=== PATIENT | male | born 1995 | race Caucasian/White ===

== ENCOUNTER 2018-06-29 16:59 | Emergency (ER) | payer OTHER, MEDICAID ==
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
[2018-06-29] MEDS ORDERED: IOPAMIDOL (ISOVUE 370) 100 ML BTL IV ONE (17:13)
[2018-06-29] MEDS ORDERED: ONDANSETRON 4 MG/2 ML VIAL IVP ONE (17:33)
[2018-06-29] MEDS ORDERED: fentaNYL 100 MCG/2 ML INJ IVP ONE (17:33)
[2018-06-29] MEDS ORDERED: NS 1,000 ML IV ONE (19:35)
[2018-06-29 21:33] VITALS: BP 129/90
== END 2018-06-29 21:35 | disposition home or self-care (01) ==
PROC: 0HQ1XZZ Repair Face Skin, External Approach (ICD-10-PCS; principal; 2018-06-29)
DX: S42.032A Displaced fracture of lateral end of left clavicle, initial encounter for closed fracture (principal); S01.01XA Laceration without foreign body of scalp, initial encounter; S22.32XA Fracture of one rib, left side, initial encounter for closed fracture; E86.9 Volume depletion, unspecified; V86.59XA Driver of other special all-terrain or other off-road motor vehicle injured in nontraffic accident, initial encounter; Y92.410 Unspecified street and highway as the place of occurrence of the external cause
CPT/HCPCS: 82435-PO; 82565-PO; 82947-PO; 84132-PO; 84295-PO; 84520-PO; 85014-ER; 96374; A4565; J2405; J3010; Q9967

== ENCOUNTER 2018-07-12 11:47 | Day surgery (SDC) | payer MEDICAID, OTHER ==
[2018-07-12] MEDS ORDERED: ceFAZolin 2 GM/DEXTROSE 100 ML IV ONE (12:03)
[2018-07-12] MEDS ORDERED: LR 1,000 ML IV ONE (12:04)
[2018-07-12] MEDS ORDERED: BUPIVACAINE/EPI 0.5% 30 ML SDV ONE (12:46)
--- NOTE | 2018-07-12 13:29 | PDHPUP ---
History & Physical Update H&P update statement: This history and physical update is based on an assessment of the patient which was completed after admission or registration (within 24 hours), but prior to the surgery/procedure. H&P update: H&P reviewed & patient examined, no change in patient's condition since H&P completed
[2018-07-12] MEDS ORDERED: MIDAZOLAM 2 MG/2 ML VIAL IVP ONE (13:33)
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
[2018-07-12] MEDS ORDERED: ROCURONIUM 100 MG/10 ML VIAL ONE (13:40)
[2018-07-12] MEDS ORDERED: fentaNYL 100 MCG/2 ML INJ ONE ×3 (13:40→16:14)
[2018-07-12] MEDS ORDERED: PROPOFOL 200 MG/20 ML VIAL ONE (13:40)
[2018-07-12] MEDS ORDERED: LIDOCAINE 2% 5 ML SDV ONE (13:41)
[2018-07-12] MEDS ORDERED: ONDANSETRON 4 MG/2 ML VIAL ONE (13:41)
[2018-07-12] MEDS ORDERED: DEXAMETHASONE 4 MG/ML VIAL ONE (13:41)
[2018-07-12] MEDS ORDERED: PHENYLEPHRINE HCL 100 MCG/ML SYR ONE (14:07)
[2018-07-12] MEDS ORDERED: HYDROmorphONE/DILAUDID 1 MG/ML INJ IVP PRN (14:38)
[2018-07-12] MEDS ORDERED: ONDANSETRON 4 MG/2 ML VIAL IVP PRN (14:38)
[2018-07-12] MEDS ORDERED: MEPERIDINE 25 MG/0.5 ML AMP IVP PRN (14:38)
[2018-07-12] MEDS ORDERED: LR 500 ML IV PRN (14:38)
[2018-07-12] MEDS ORDERED: NALOXONE HCL 0.4 MG/ML INJ IVP PRN (14:38)
[2018-07-12] MEDS ORDERED: fentaNYL 100 MCG/2 ML INJ IVP PRN (14:38)
[2018-07-12] MEDS ORDERED: HYDROCODONE/APAP 5/325 TAB PO PRN (14:38)
[2018-07-12] MEDS ORDERED: ACETAMINOPHEN 500 MG TAB PO PRN (14:38)
[2018-07-12] MEDS ORDERED: PROMETHAZINE HCL 25 MG/ML INJ IVP PRN (14:38)
[2018-07-12] MEDS ORDERED: oxyCODONE IR 5 MG TAB PO PRN (14:38)
[2018-07-12] MEDS ORDERED: PHENYLEPHRINE HCL 100 MCG/ML SYR IVP PRN (14:38)
[2018-07-12] MEDS ORDERED: GLYCOPYRROLATE 0.2 MG/1 ML VIAL ONE (15:44)
[2018-07-12] MEDS ORDERED: KETOROLAC 30 MG/1 ML SDV ONE (16:00)
--- NOTE | 2018-07-12 17:20 | POSTANESTH ---
Post Anesthetic Evaluation Cardiovascular Status: Similar to Pre-Op Cond Respiratory Status: Similar to Pre-op Cond. Level of Consciousness/Mental Status: Can Participate in Eval Pain Control: Adequate, Prn Tx Ordered Nausea/Vomiting Control: Adequate, Prn Tx Ordered Complications Possibly Related to Anesthesia: None Noted
[2018-07-12] MEDS ORDERED: oxyCODONE IR 5 MG TAB ONE (17:38)
[2018-07-12 18:25] VITALS: BP 103/59
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
== END 2018-07-12 18:10 | disposition home or self-care (01) ==
LOC: FSGY 11:47
PROVIDERS: ATTEND Orthopaedic Surgery Hand Surgery
PROC: 0PSB04Z Reposition Left Clavicle with Internal Fixation Device, Open Approach (ICD-10-PCS; principal; 2018-07-12 13:15)
DX: S42.022A Displaced fracture of shaft of left clavicle, initial encounter for closed fracture (principal); V29.9XXA Motorcycle rider (driver) (passenger) injured in unspecified traffic accident, initial encounter; Y92.410 Unspecified street and highway as the place of occurrence of the external cause; Y99.8 Other external cause status
CPT/HCPCS: C1713; J0690; J1100; J1885; J2250; J2370; J2405; J2704; J3010

== ENCOUNTER → 2018-07-26 | Outpatient (CLI) | payer MEDICAID | LOC: BMCIMAGING 14:08 ==